=== PATIENT | male | born 1950 | race African-American/Black ===

== ENCOUNTER 2018-06-28 07:24 | Inpatient (IN) | payer BC, MEDICARE ==
[2018-06-28] VITALS (48 sets, daily range): BP systolic 117–150; BP diastolic 57–93
[~2018-06-28] VITALS: Ht 185.4 cm; Wt 97.5 kg
[2018-06-28 07:42] LABS: Basophils # (auto) 0 uL; Basophils % (auto) 0.4 % (0.0-2.0); Eosinophils # (auto) 0.3 uL; Monocytes % (auto) 12.2 % (0.0-12.0); Neutrophils # (auto) 3.7 uL; Nucleated Red Blood Cells % 0.3 %
[2018-06-28 07:44] LABS: Hematocrit 37.4 % (41.0-53.0); Hemoglobin 11.5 g/dL (13.5-17.5); Lymphocytes % (auto) 29.5 % (10.0-50.0); Mean Corpuscular Hemoglobin 29.4 pg (28.0-32.0); Mean Corpuscular Hgb Conc. 30.8 g/dL (32.0-36.0); Mean Corpuscular Volume 95.4 fL (80.0-100.0); Monocytes # (auto) 0.8 uL; Neutrophils % (auto) 53.9 % (37.0-80.0); Platelet Count (auto) 130 10^3/uL (140-450); Red Blood Cells 3.92 10^6/uL (4.5-5.90); Red Cell Distribution Width 12.8 % (11.8-14.3); White Blood Cell 6.9 10^3/uL (4.4-10.8)
[2018-06-28] MEDS ORDERED: NOREPINEPHRINE 8 MG/250ML KIT 250 ML IV ONE (07:46)
[2018-06-28 07:59] LABS: Albumin 3.1 g/dL (3.4-5.0); Anion Gap 14 (5-15); Calcium 8.4 mg/dL (8.5-10.1); Carbon Dioxide 20 mmol/L (21-32); Chloride 105 mmol/L (98-107); Glucose 304 mg/dL (74-106); Magnesium 2.5 mg/dL (1.6-2.6); Potassium 4.4 mmol/L (3.5-5.1); Sodium 139 mmol/L (136-145)
[2018-06-28 08:02] LABS: Alanine Aminotransferase 71 U/L (16-61); Alkaline Phosphatase 184 U/L (45-117); Aspartate Aminotransferase 80 U/L (15-37); BUN/Creatinine Ratio 20.2; Bilirubin, Total 0.3 mg/dL (0.2-1.0); Blood Urea Nitrogen 53 mg/dL (7-18); GFR African American 32 mL/min; GFR Non-African American 26 mL/min; Total Protein 6.8 g/dL (6.4-8.2)
[2018-06-28 08:11] LABS: Urine Bacteria NONE SEEN /hpf (None Seen); Urine Blood 1+ /uL (Negative); Urine Mucus FEW (None Seen); Urine Specific Gravity 1.014 (1.001-1.035); Urine Sperm PRESENT /hpf (None Seen); Urine WBC 37 /hpf (0 - 3)
[2018-06-28 08:13] LABS: Alcohol, Urine < 3.0 mg/dL (0-5); Amphetamine Screen, Urine NEGATIVE (NEGATIVE); Barbiturate Scree,Urine NEGATIVE (NEGATIVE); Benzodiazephine Screen, Urine NEGATIVE (NEGATIVE); Cannabinoid Screen, Urine NEGATIVE (NEGATIVE); Cocaine Screen, Urine NEGATIVE (NEGATIVE); Opiate Scree,Urine NEGATIVE (NEGATIVE); Phencyclidine Screen, Urine NEGATIVE (NEGATIVE)
[2018-06-28] MEDS ORDERED: SODIUM CHLORIDE 0.9% 1,000 ML IV ONE (08:15)
[2018-06-28] MEDS: NOREPINEPHRINE 8 MG/250ML KIT 250 ML IV SCH (08:24)
[2018-06-28 08:43] LABS: INR 0.93 (0.9-1.15)
[2018-06-28] MEDS ORDERED: LORazepam 2MG/ML-1ML VIAL IV ONE (09:45)
[2018-06-28] MEDS ORDERED: ENOXAPARIN SOD 60 MG/0.6 ML SYRINGE SC ONE (10:15)
[2018-06-28 10:29] LABS: Lactic Acid w/Reflex 5.2 mmol/L (0.4-2.0)
[2018-06-28] MEDS ORDERED: METOPROLOL TARTRATE 1MG/1ML-5ML VIAL IV ONE (10:45)
[2018-06-28] MEDS ORDERED: cefTRIAXone 1GM/50ML D5W 50 ML IV ONE (10:45)
[2018-06-28] MEDS ORDERED: FUROSEMIDE 20 MG/2 ML VIAL ONE (11:02)
[2018-06-28] MEDS: SODIUM CHLORIDE 0.9% 1,000 ML IV SCH (11:13)
[2018-06-28] MEDS ORDERED: NITROGLYCERIN 50MG/250ML 250 ML IV SCH (11:13)
[2018-06-28] MEDS ORDERED: PROMETHAZINE HCL 25 MG/ML 1ML IV PRN (11:15)
[2018-06-28] MEDS ORDERED: NITROGLYCERIN 0.4 MG SL TAB SL PRN (11:15)
[2018-06-28] MEDS ORDERED: MORPHINE SULFATE 10 MG/ML INJ 1ML SDV IV PRN ×2 (11:15)
[2018-06-28] MEDS ORDERED: ALBUTEROL SULF 2.5 MG/0.5ML(0.5%) NEB SOLN NEB PRN (11:15)
[2018-06-28] MEDS ORDERED: LORazepam 2MG/ML-1ML VIAL IV PRN (11:15)
[2018-06-28] MEDS ORDERED: OSELTAMIVIR 75 MG CAP PO ONE (11:15)
[2018-06-28] MEDS ORDERED: PANTOPRAZOLE 40 MG/10 ML VIAL IV ONE (11:15)
[2018-06-28] MEDS ORDERED: hydrALAZINE HCL 20 MG/ML VL IV ONE (11:15)
[2018-06-28] MEDS ORDERED: DEXTROSE (50%) 50ML SYRG IV PRN (11:15)
[2018-06-28] MEDS ORDERED: LACTULOSE 20Gm/30ML SOLN PO PRN (11:15)
[2018-06-28] MEDS ORDERED: FUROSEMIDE 20 MG/2 ML VIAL IV ONE (11:15)
[2018-06-28] MEDS ORDERED: NITROGLYCERIN 50MG/250ML 250 ML IV ONE (11:30)
[2018-06-28] MEDS: InsuLIN REG 1unit/0.01ml Soln (100units/ml) SC SCH ×3 (12:00→20:15)
[2018-06-28] MEDS: ACCU-CHEK COMFORT CURVE STRIP VI SCH ×3 (12:00→20:15)
[2018-06-28] MEDS ORDERED: SODIUM CHLORIDE 0.9% 3,250 ML IV ONE (12:15)
[2018-06-28] MEDS: ALBUTEROL SULF 2.5 MG/0.5ML(0.5%) NEB SOLN NEB SCH ×2 (12:20→18:16)
[2018-06-28] MEDS: NICARDIPINE 25MG/250ML BAG KIT 250 ML IV SCH ×3 (12:22→22:00)
[2018-06-28] MEDS ORDERED: LIDOCAINE 2% (LOCAL ANESTH.) PF 5ml SDV ONE (13:32)
--- NOTE | 2018-06-28 13:32 | NUR ---
Admit to ICU from ER on vent JONAH RAMÍREZadmitted to ICU via gurdewey on lunchroom monitor, intubated and being bagged by Respiratory Therapist. Patient transfered to bed, connected to mechanical ventilator by therapist, FILEMON at bedside. Patient connected to ICU monitoring, weighed by helena, oriented to Dean dill RN, unit, ventilator. NOTE: PATIENT ON VENTILATOR ON COOLING BLANKET. THERAPEUTIC HYPOTHERMIA INITIATED BY ER STAFF BY EXTERNAL COOLING AT 1200 NOON. PATIENT PENDING SPECIALTY COOLING CENTRAL LINE CATHETER PLACEMENT FOR INTERNAL COOLING. PATIENT ET TUBE IS SIZE 8 AND 22 AT THE LIP , VENT SETTINGS AC MODE RATE 18, TV-550, PEEP-5, 60% FIO2. VS HR-93, SPO2-92% ,BP-140/43, RR-20, TEMP 34 DEGREES CELSIUS. CLAYTON CATH FROM ER REMOVED.Clayton catheter [16] guage Maltese inserted with clean sterile technique. Patient tolerated well. CURRENT CLAYTON PLACED HAS INTERNAL TEMPERATURE PROBE DUE TO SHORTAGE OF RECTAL PROBES. PHYSICAL ASSESSMENT PERFORMED DOCUMENTED IN SMB Suite WITH IV SPREADSHEET. SCDS PLACED ON BOTH LEGS. ORAL CARE PERFORMED. WILL CONTINUE TO FOLLOW THROUGH WITH PLAN OF CARE.
--- NOTE | 2018-06-28 14:00 | NUR ---
RIGHT FEMORAL LINE CATHETER PLACED BY AT BEDSIDE. CVP SET UP CONNECTED CVP IS 8. LINES ZEROED TO PHLEBOSTATIC AXIS. CATHETER CONNECTED TO INTERNAL COOLING SYSTEM. CONSENT FOR CENTRAL LINE RECEIVED VIA TELEPHONE BY VERIFIED BY SECOND RN.
[2018-06-28] MEDS: PROPOFOL 100 ML IV SCH ×2 (14:23→23:41)
[2018-06-28] MEDS ORDERED: PROPOFOL 100 ML IV ONE (14:23)
[2018-06-28] MEDS ORDERED: OSELTAMIVIR 75MG/5ML ORAL SUSP GT ONE (14:45)
[2018-06-28] MEDS ORDERED: methylPREDNISolone SOD SUCC 40 MG/ML VL IV ONE (14:45)
[2018-06-28 14:58] LABS: CRP High Sensitivity 1.28 mg/dL (< 0.3)
[2018-06-28] MEDS: METOPROLOL TARTRATE 25 MG TAB NG SCH ×2 (15:31→22:00)
[2018-06-28] MEDS: ATORVASTATIN 20 MG TAB NG SCH ×2 (15:31→22:13)
[2018-06-28] MEDS: CLINDAMYCIN 600MG IV 50 ML IV SCH ×2 (15:32→22:12)
[2018-06-28] MEDS ORDERED: NEBI10TA2 PO (16:28)
[2018-06-28] MEDS ORDERED: HYDR50TA15 PO (16:28)
[2018-06-28] MEDS ORDERED: LEVO175T31 PO (16:28)
[2018-06-28] MEDS ORDERED: ALBU1AER4 IN (16:28)
[2018-06-28] MEDS ORDERED: BETH10TA2 PO (16:28)
[2018-06-28] MEDS ORDERED: FURO40TA PO (16:28)
[2018-06-28] MEDS ORDERED: ASPI-231 PO (16:28)
[2018-06-28] MEDS ORDERED: METO5TAB56 PO (16:28)
[2018-06-28] MEDS ORDERED: ATOR10TA52 PO (16:28)
[2018-06-28 16:44] LABS: Protein, Urine 65.4 mg/dL (0.0-11.9)
[2018-06-28 16:44] LABS: Lactic Acid w/Reflex 2.1 mmol/L (0.4-2.0)
[2018-06-28 16:48] LABS: Urine Bacteria NONE SEEN /hpf (None Seen); Urine Blood 2+ /uL (Negative); Urine Specific Gravity 1.007 (1.001-1.035); Urine WBC 3 /hpf (0 - 3)
--- NOTE | 2018-06-28 17:30 | NUR ---
ET TUBE ADVANCED BY RT FROM 20 TO 22CM, AUDIBLE LEAK GONE AFTER ADVANCEMENT.
--- NOTE | 2018-06-28 18:11 | NUR ---
NOTIFIED [facility] OF PATIENT LAST TWO TROPONIN LEVELS, ORDERS RECEIVED FOR LEFT/ RIGHT HEART CATH ANGIOGRAM FOR EARLY 729. NOTIFIED AT BEDSIDE OF PLAN , WILL SIGN CONSENT ONCE MD EXPLAINS PROCEDURE.
[2018-06-28 18:34] LABS: BUN/Creatinine Ratio 19.6; Calcium 7.6 mg/dL (8.5-10.1); Potassium 3.5 mmol/L (3.5-5.1)
--- NOTE | 2018-06-28 20:00 | NUR ---
ASSESSMENT PATIENT IS UNRESPONSIVE.NO GAG NO COUGH. DIPRIVAN AT 20 MCG/KG/MIN DUE TO THERAPEUTIC HYPOTHERMIA TREATMENT. PATIENT IS ON COOLING STAGE PATIENT'S TEMPERATURE IS 91.4 DEGREE FAHRENHEIT. EKG SHOWS SINUS ARRHYTHMIA.
[2018-06-28] MEDS: FLUCONAZOLE 200MG/100ML 100 ML IV SCH ×2 (21:04→22:12)
[2018-06-28] MEDS ORDERED: OSELTAMIVIR 75 MG CAP PO SCH (22:00)
[2018-06-28] MEDS ORDERED: OSELTAMIVIR 75MG/5ML ORAL SUSP GT SCH (22:00)
[2018-06-28] MEDS: ENOXAPARIN SOD 100 MG/1 ML SYRINGE SC SCH (22:11)
[2018-06-28] MEDS: methylPREDNISolone SOD SUCC 40 MG/ML VL IV SCH (22:11)
[2018-06-29] VITALS (73 sets, daily range): BP systolic 97–150; BP diastolic 54–91
[2018-06-29] MEDS: ACCU-CHEK COMFORT CURVE STRIP VI SCH ×6 (00:15→20:00)
[2018-06-29] MEDS: InsuLIN REG 1unit/0.01ml Soln (100units/ml) SC SCH ×6 (00:16→20:00)
[2018-06-29] MEDS: ALBUTEROL SULF 2.5 MG/0.5ML(0.5%) NEB SOLN NEB SCH ×4 (00:18→18:12)
[2018-06-29 00:54] LABS: BUN/Creatinine Ratio 19.8; Calcium 7.8 mg/dL (8.5-10.1); Magnesium 1.9 mg/dL (1.6-2.6); Potassium 3.4 mmol/L (3.5-5.1)
[2018-06-29 01:03] LABS: Lactic Acid w/Reflex 3.2 mmol/L (0.4-2.0)
[2018-06-29] MEDS: NICARDIPINE 25MG/250ML BAG KIT 250 ML IV SCH ×5 (03:00→23:00)
--- NOTE | 2018-06-29 04:30 | NUR ---
SKIN PREPARATION/CHLORHEXIDINE BATH HAIR REMOVAL IS DONE ON GROIN AREA. CHLORHEXIDINE BATH GIVEN. SKIN IS INTACT.
[2018-06-29] MEDS: CLINDAMYCIN 600MG IV 50 ML IV SCH ×3 (05:36→21:33)
[2018-06-29] MEDS: PROPOFOL 100 ML IV SCH ×2 (05:36→20:30)
[2018-06-29] MEDS: SODIUM CHLORIDE 0.9% 1,000 ML IV SCH (05:37)
[2018-06-29 05:46] LABS: Basophils # (auto) 0 uL; Basophils % (auto) 0.4 % (0.0-2.0); Eosinophils # (auto) 0 uL; Eosinophils % (auto) 0.1 % (0.0-7.0); Hematocrit 35.3 % (41.0-53.0); Hemoglobin 11.3 g/dL (13.5-17.5); Lymphocytes # (auto) 0.1 uL; Lymphocytes % (auto) 5.6 % (10.0-50.0); Mean Corpuscular Hemoglobin 28.8 pg (28.0-32.0); Monocytes # (auto) 0.1 uL; Monocytes % (auto) 5.3 % (0.0-12.0); Neutrophils # (auto) 2.1 uL; Neutrophils % (auto) 88.6 % (37.0-80.0); Nucleated Red Blood Cells % 0.1 %; Platelet Count (auto) 120 10^3/uL (140-450); Red Blood Cells 3.93 10^6/uL (4.5-5.90); Red Cell Distribution Width 12.3 % (11.8-14.3); White Blood Cell 2.4 10^3/uL (4.4-10.8)
[2018-06-29 06:04] LABS: Albumin 2.3 g/dL (3.4-5.0); BUN/Creatinine Ratio 19.4; Calcium 7.8 mg/dL (8.5-10.1); Magnesium 1.8 mg/dL (1.6-2.6); Potassium 3.5 mmol/L (3.5-5.1)
[2018-06-29 06:05] LABS: Lactic Acid w/Reflex 2.4 mmol/L (0.4-2.0)
[2018-06-29 06:08] LABS: Bilirubin, Direct 0.2 mg/dL (0-0.2); Bilirubin, Total 0.3 mg/dL (0.2-1.0); Phosphorus 3.5 mg/dL (2.5-4.90); Total Protein 5.6 g/dL (6.4-8.2)
--- NOTE | 2018-06-29 06:15 | NUR ---
FAMILY AT BEDSIDE PATIENT'S AND SON ARE AT BEDSIDE. UPDATED WITH PT'S CONDITION. THEY VERBALIZED UNDERSTANDING.
[2018-06-29 06:27] LABS: INR 1.1 (0.9-1.15); Partial Thromboplastin Time 35.7 sec (23.78-33.04); Prothrombin Time 11.7 sec (9.27-12.13)
--- NOTE | 2018-06-29 07:00 | NUR ---
REPORT REPORT IS GIVEN TO BECKA GLEZ. ENDORSED CARE. COOLING MEASURES CONTINUING.
--- NOTE | 2018-06-29 07:50 | NUR ---
ETT. ADVANCED 6CM , PER RADIOLOGIST. ETT. IS NOW AT 26CM AT THE LIP. Addendum: 06/29/18 at 0902 by Lilian Decker RT Amended: Links added.
--- NOTE | 2018-06-29 07:50 | NUR ---
NEUROLOGY AT BEDSIDE/CALL FROM RADIOLOGIST/ETT ADVANCED PHONE CALL RECEIVED FROM RADIOLOGIST - RECOMMENDING ETT BE ADVANCED 6 CM PER MESSAGE TAKEN FROM ATHLETIC EQUIPMENT CUSTODIAN. Anastasia NEWSOME. AWARE. DR AQUINO AT BEDSIDE, UPDATED ON PATIENT'S STATUS AND ASSESSMENT FINDINGS. DR AQUINO PERFORMED ASSESSMENT WELL, DISCUSSED PROGNOSIS AND PLAN OF CARE WITH PATIENT SPOUSE AT BEDSIDE.
[2018-06-29] MEDS: NOREPINEPHRINE 8 MG/250ML KIT 250 ML IV SCH (08:15)
--- NOTE | 2018-06-29 08:15 | NUR ---
PAGED CARDIOLOGY PAGED DR JANSEN TO NOTIFY OF FAMILY REQUEST TO SPEAK WITH HIM PRIOR TO SIGNING CONSENT FOR THIS MORNING SCHEDULED HEART CATH.
--- NOTE | 2018-06-29 08:46 | NUR ---
CARDIOLOGY AT BEDSIDE DR JANSEN UPDATED ON PATIENT'S STATUS. DR JANSEN DISCUSSED PLAN OF CARE AND PROCEDURE WITH PATIENT'S SPOUSE AND SON AT BEDSIDE. ORDERS FOR LEFT RIGHT HEART CATH AND PERMANENT PACEMAKER INSERTION RECEIVED. ORDERS WILL BE PLACED BY DR JANSEN. CONSENT WILL BE SIGNED. FAMILY VERBALIZED UNDERSTANDING.
[2018-06-29] MEDS: ENOXAPARIN SOD 100 MG/1 ML SYRINGE SC SCH ×2 (10:00→22:15)
[2018-06-29] MEDS ORDERED: LEVOFLOXACIN 500MG 100 ML IV ONE (10:00)
[2018-06-29] MEDS: ASPirin 81 mg TAB NG SCH (10:00)
--- NOTE | 2018-06-29 10:04 | NUR ---
NEPHROLOGY AT BEDSIDE DR SCANLON UPDATED ON PATIENT'S STATUS, URINE OUTPUT AND DRIPS. ORDERS TO DISCONTINUE TRIDIL AND RESTART NICARDIPINE IF NEEDED RECEIVED. DR SCANLON DISCUSSED PLAN OF CARE WITH PATIENT SPOUSE AND SON AT BEDSIDE, FAMILY VERBALIZED UNDERSTANDING.
[2018-06-29] MEDS: METOPROLOL TARTRATE 25 MG TAB NG SCH ×2 (11:02→21:34)
[2018-06-29] MEDS: methylPREDNISolone SOD SUCC 40 MG/ML VL IV SCH (11:02)
[2018-06-29] MEDS: PANTOPRAZOLE 40 MG/10 ML VIAL IV SCH (11:02)
--- NOTE | 2018-06-29 11:15 | NUR ---
WOUND CARE NOTE: IN TO SEE PATIENT FOR SKIN INTEGRITY MONITORING AT THIS TIME. PATIENT RECENTLY ADMITTED TO [facility] WITH DIAGNOSIS OFCARDIAC ARREST, NON STEMI. CURRENT WENCESLAO SCORE IS 12. HE IS ON MULTIPLE DRIPS. PATIENT IS INTUBATED, SEDATED. FAMILY AT BEDSIDE. PATIENT IS WOUND FREE AT THIS TIME. IMPLEMENTED SKIN/WOUND CARE PLAN FOR LOW WENCESLAO SCORES UNDER 19. RECOMMEND: FREQUENT TURN SCHEDULE Q 2 HOURS, PRN CONDITION PERMITS, WITH PRESSURE REDISTRIBUTION USING PILLOWS/WEDGES, BID/PRN APPLICATION WITH MOISTURE BARRIER CREAM AND OPTIFOAM GENTLE SACRAL DRESSING PREVENTATIVE, DIETARY CONSULT FOR LOW WENCESLAO, CONTINUED MONITORING BY WOUND CARE TEAM.
--- NOTE | 2018-06-29 12:09 | NUR ---
REWARMING PHASE STARTED VS STABLE, FAMILY AT BEDSIDE. WILL MONITOR PATIENT PER PROTOCOL.
[2018-06-29 12:29] LABS: Potassium 3.8 mmol/L (3.5-5.1)
[2018-06-29 12:32] LABS: Lactic Acid w/Reflex 2.8 mmol/L (0.4-2.0)
[2018-06-29 12:34] LABS: BUN/Creatinine Ratio 19.8; Magnesium 1.9 mg/dL (1.6-2.6)
--- NOTE | 2018-06-29 13:08 | NUR ---
CONTACT ISOLATION PATIENT PLACED ON CONTACT ISOLATION PER MICROBIOLOGY RESULTS FOR POSITIVE MRSA NARES. SHEYLA, CHARGE NURSE AND FAMILY AWARE. WILL BE NOTIFIED.
[2018-06-29] MEDS ORDERED: SODIUM CHL 0.9% 0 ML ONE (13:22)
[2018-06-29] MEDS ORDERED: ANGIOMAX 250 MG VIAL IV ONE (13:22)
[2018-06-29] MEDS ORDERED: IODIXANOL 320MG/ML 100ML BTL IV ONE ×2 (13:25→14:17)
[2018-06-29] MEDS ORDERED: LIDOCAINE 2%HCL (LOCAL ANESTH.) INJ 20ML MDV ONE (13:26)
--- NOTE | 2018-06-29 13:50 | NUR ---
PATIENT OFF FLOOR/HOSPITALIST AT BEDSIDE TO [facility] FOR SCHEDULED PROCEDURE. DR CARLOS UPDATED ON PATIENT STATUS - DOCTOR DISCUSSED PLAN OF CARE WITH PATIENT'S FAMILY AT BEDSIDE.
[2018-06-29] MEDS ORDERED: Glucerna 1.2 Cal 1Liter BOTTLE GT SCH (14:00)
--- NOTE | 2018-06-29 15:30 | NUR ---
PATIENT RETURN TO FLOOR FROM AIRCRAFT INSTRUMENT REPAIRER - PATIENT CONNECTED TO BEDSIDE MONITOR - ZOLL MACHINE NOT FUNCTIONING ADEQUATELY DUE TO TRANSFER TO AIRCRAFT INSTRUMENT REPAIRER AND READJUSTED. CURRENT TEMPERATURE 33.6 CELCIUS. WILL CONTINUE REWARMING PROCESS PER PROTOCOL. COMFORT MEASURES PROVIDED, VSS AND DOCUMENTED.
--- NOTE | 2018-06-29 16:08 | NUR ---
FAMILY AT BEDSIDE Family at bedside and updated on pt status. All questions and concerns addressed. Family verbalized understanding.
--- NOTE | 2018-06-29 19:15 | NUR ---
END OF SHIFT REPORT NO NEURO CHANGES NOTED, THROUGHOUT SHIFT - ENDORSED PATIENT CARE TO KNITTER OPERATOR RN. VS NOT TRANSPOSING, SEE GRAPHICS FILED IN CHART.
--- NOTE | 2018-06-29 19:35 | NUR ---
ASSESSMENT: PT. INTUBATED AND OFF SEDATION AT THIS TIME. HR 80'S, SBP 140-150'S, RR LOW 30'S. CHEWING MOVEMENT NOTED TO MOUTH WITH NO RESPONSE TO SUCTIONING BOTH ORAL AND ENDOTRACHEAL. PUPILS UNEQUAL, AND NON REACTIVE, RIGHT 3, LEFT 2. FAMILY STATES PATIENT HAS HAD BILATERAL CATARACT SURGERY IN THE PAST. VENT ON 30% FIO2, +5 PEEP, SATS 90%. LUNGS CLEAR TO AUSCULTATION. ABDOMEN - LARGE, ROUND WITH (+) B.S., NO STOOL NOTED AT THIS TIME. OGT TO LIS, WITH LIGHT GREEN DRAINAGE. RICHARDSON WITH CLEAR, YELLOW URINE TO DD. ALSYUS COOLING MACHINE IN PLACE TO CENTRAL LINE TO RIGHT FEMORAL AREA. PT. IN REWARMING MODE AT THIS TIME. TEMP 35.5, GOAL 37.
--- NOTE | 2018-06-29 20:30 | NUR ---
PT. REPOSITIONED TO RIGHT SIDE WITH X2 ASSIST. SATURATIONS DOWN 86%, SUCTIONED BOTH ORAL AND ETT WITH MINIMAL CHANGE IN SATS PT'S CHILDREN AT BEDSIDE.
--- NOTE | 2018-06-29 20:30 | NUR ---
HR 80'S,, SATS 90%, SBP 150'S, BREATHING TACHYPNEIC, IRREGULAR, RR 32-36, BREATHING APPEARS HEAVIER. WILL RESTART PROPOFOL FAMILY ASKS ABOUT CARDENE FOR PRESSURE CONTROL, EXPLAINED THAT PROPOFOL WILL BE GIVEN A CHANGE TO WORK ON SEDATION AND DECIDE ON DRIP AFTER ITS SEEN WHAT CHANGES PROPOFOL DOES.
[2018-06-29] MEDS ORDERED: FLUCONAZOLE 200MG/100ML 100 ML IV SCH (21:00)
--- NOTE | 2018-06-29 21:09 | NUR ---
SPOKE TO BLAIR, PT'S DAUGHTER, QUESTIONS AND CONCERNS ADDRESSED IN REGARDS TO INCREASE IN FIO2 AND LASIX WHICH WAS DISCUSSED WITH DR. ALLEN EARLIER.
[2018-06-29] MEDS: ATORVASTATIN 20 MG TAB NG SCH (21:33)
--- NOTE | 2018-06-29 21:45 | NUR ---
PT'S AT BEDSIDE, QUESTIONS AND CONCERNS ADDRESSED.
--- NOTE | 2018-06-29 22:48 | NUR ---
TARGET REWARMING TEMP REACHED AT 37.0
[2018-06-30] VITALS (101 sets, daily range): BP systolic 90–124; BP diastolic 47–75
[2018-06-30] MEDS: ALBUTEROL SULF 2.5 MG/0.5ML(0.5%) NEB SOLN NEB SCH ×4 (00:01→19:08)
[2018-06-30] MEDS: InsuLIN REG 1unit/0.01ml Soln (100units/ml) SC SCH ×4 (00:20→20:00)
[2018-06-30] MEDS: ACCU-CHEK COMFORT CURVE STRIP VI SCH ×4 (00:21→20:00)
--- NOTE | 2018-06-30 01:30 | NUR ---
FIO2 50%, SATS 95%. LARGE AMT. OF THICK, CLEAR ORAL SECRETIONS.
[2018-06-30] MEDS: PROPOFOL 100 ML IV SCH (03:17)
[2018-06-30 03:43] LABS: Hematocrit 32.4 % (41.0-53.0); Hemoglobin 10.7 g/dL (13.5-17.5); Mean Corpuscular Hemoglobin 29.1 pg (28.0-32.0); Mean Corpuscular Hgb Conc. 32.9 g/dL (32.0-36.0); Mean Corpuscular Volume 88.6 fL (80.0-100.0); Platelet Count (auto) 123 10^3/uL (140-450); Red Blood Cells 3.66 10^6/uL (4.5-5.90); Red Cell Distribution Width 12.4 % (11.8-14.3)
[2018-06-30 03:55] LABS: Albumin 2.2 g/dL (3.4-5.0); Calcium 7.8 mg/dL (8.5-10.1); Potassium 4.4 mmol/L (3.5-5.1)
[2018-06-30 03:59] LABS: Bilirubin, Direct 0.2 mg/dL (0-0.2); Bilirubin, Total 0.4 mg/dL (0.2-1.0)
[2018-06-30] MEDS: NICARDIPINE 25MG/250ML BAG KIT 250 ML IV SCH ×2 (04:00→09:00)
[2018-06-30 04:42] LABS: Basophils % (manual) 0 (0.0-2.0); Blast Cells 0; Eosinophils % (manual) 0 (0-7); Metamyelocytes % 0; Myelocytes % 0; Promyelocytes % 0; Reactive Lymphocytes 0
--- NOTE | 2018-06-30 05:00 | NUR ---
LARGE AMOUNT OF ORAL SECRETIONS, FREQUENTLY BEING SUCTION DUE TO AMT. OF ORAL SECRETIONS.
--- NOTE | 2018-06-30 05:30 | NUR ---
CALL RECEIVED FROM PT'S , UPDATED ON STATUS.
[2018-06-30] MEDS: CLINDAMYCIN 600MG IV 50 ML IV SCH ×3 (06:00→21:36)
--- NOTE | 2018-06-30 06:00 | NUR ---
LOW URINE OUTPUT, LARGE AMT. OF SEDIMENT AND CLOUDY
[2018-06-30 06:44] LABS: Band Neutrophils % (manual) 31; Lymphocytes % (manual) 5 (10.0-50.0); Monocytes % (manual) 10 (0-12)
--- NOTE | 2018-06-30 07:33 | NUR ---
REPORT GIVEN TO MARIA EUGENIA GLEZ
--- NOTE | 2018-06-30 08:00 | NUR ---
OPEN: ASSESSMENT COMPLETE. SEE NURSING FLOW SHEET FOR UPDATED DETAILS. PT IS NON-VERBAL, INTUBATED, APHASIC, DOES NOT FOLLOW COMMANDS, NO COUGH OR GAG REFLEX, PUPILS UNEQUAL AND NON-REACTIVE, NO SPONTANEOUS EXTREMITY MOVEMENTS, DOES NOT RESPOND TO VERBAL OR PAINFUL STIMULI, MOVES JAW ON OCCASION BUT NOT OTHER MOVEMENTS NOTED. ON VENTILATOR WITH 8.0ETTUBE/26LIP LINE. AC18, TV550, 45% FI02, PEEP 5. MINIMAL TO NO SECRETIONS VIA ETTUBE. COPIOUS AMOUNT OF CLEAR SECRETIONS VIA ORAL CAVITY. OGT IN PLACE-CLAMPED AND IN PROPER PLACEMENT BY AUSCULTATION AND ASPIRATION. RICHARDSON CATHETER IN PLACE DRAINING URINE TO GRAVITY. SCD'S ON BILATERAL LOWER EXTREMITIES. CENTRAL LINE TO LEFT GROIN RUNNING .9NS AT TKO RATE OF 10ML/HR AND DIPRIVAN GTT AT 20MCG/KG/MIN. CENTRAL LINE PORT CAPABLE TO ZOLL MONITOR FOR TEMPERATURE MANAGEMENT, AT TIME CONNECTED FOR THE WARMING PHASE WITH THE GOAL OF 37 DEGREES CELCIUS OBTAINED. 20G IV TO LEFT HAND, SL. 20G IV TO RIGHT HAND, SL. 20G IV TO RIGHT AC, SL. ALL MONITORS CONNECTED TO PT FOR CONTINUOUS MONITORING. SHARED POC WITH PT BUT UNABLE TO VERBALIZE UNDERSTANDING AT TIME. CONTINUE CARE FOR SHIFT.
[2018-06-30] MEDS: NOREPINEPHRINE 8 MG/250ML KIT 250 ML IV SCH (08:15)
--- NOTE | 2018-06-30 08:45 | NUR ---
RT Transport Note: Patient transported to {CT} with RN {MAIA CHURCHILL}. Patient transported to and from procedure on ventilator with previous ordered settings. Patient on security monitor with alarms set and audible, ambu-bag/mask connected to 02 tank. Patient returned to room with no adverse reaction noted. Transport completed without incident.
--- NOTE | 2018-06-30 08:47 | NUR ---
HEAD CT: PT TAKEN TO HEAD CT. PT TRANSPORTED TO HEAD CT WITH ASSISTANCE FROM CHRISTOPHER GLEZ (DIGITAL SALES MANAGER), RT AND TECH. ALL VITAL SIGNS TAKEN PRIOR AND IN STABLE RANGE.
--- NOTE | 2018-06-30 09:00 | NUR ---
SEDATION: DECREASED DIPRIVAN TO 15MCG/KG/MIN. PT STILL NOT MOVING ANY EXTREMITIES, DOES NOT FOLLOW COMMANDS, NO COUGH OR GAG AND PUPILS REMAIN FIXED AND NON-REACTIVE. DOES BREATH OVER VENTILATOR WITH A RATE BETWEEN 19-20.
--- NOTE | 2018-06-30 09:12 | NUR ---
RETURN: PT RETURNED FROM HEAD CT IN STABLE CONDITION. PT CONNECTED TO BEDSIDE MONITOR, VITAL SIGNS TAKEN AND REPOSITIONED IN BED. PT OVERALL TOLERATED PROCEDURE WELL.
--- NOTE | 2018-06-30 09:30 | NUR ---
SEDATION: DECREASED DIPRIVAN TO 10MCG/KG/MIN. PT STILL NOT MOVING ANY EXTREMITIES, DOES NOT FOLLOW COMMANDS, NO COUGH OR GAG AND PUPILS REMAIN FIXED AND NON-REACTIVE. DOES BREATH OVER VENTILATOR WITH A RATE BETWEEN 19-21.
--- NOTE | 2018-06-30 09:30 | NUR ---
MD VISIT: DR. SCANLON IN AT BEDSIDE. UPDATED ON PT STATUS AND ALL QUESTIONS ADDRESSED. NO NEW ORDERS RECEIVED AT TIME.
[2018-06-30] MEDS: ENOXAPARIN SOD 100 MG/1 ML SYRINGE SC SCH (09:55)
[2018-06-30] MEDS: ASPirin 81 mg TAB NG SCH (09:55)
[2018-06-30] MEDS: PANTOPRAZOLE 40 MG/10 ML VIAL IV SCH (09:55)
[2018-06-30] MEDS ORDERED: LEVOFLOXACIN 250MG 50 ML IV SCH (10:00)
--- NOTE | 2018-06-30 10:00 | NUR ---
EEG: EEG IN AT BEDSIDE. ATTEMPTING TO PERFORM EEG PER MD ORDERS BUT ROOM AND PT ARE BRINGING TOO MUCH ARTIFACT. DR. AQUINO NOTIFIED AND AWARE.
--- NOTE | 2018-06-30 10:30 | NUR ---
FAMILY: FAMILY IN AT BEDSIDE, DAUGHTER AND . FULLY UPDATED ON PT STATUS AND ALL QUESTIONS AND CONCERNS ADDRESSED.
--- NOTE | 2018-06-30 10:30 | NUR ---
SEDATION: TURNED OFF SEDATION. PT STILL NOT MOVING ANY EXTREMITIES, DOES NOT FOLLOW COMMANDS, NO COUGH OR GAG AND PUPILS REMAIN FIXED AND NON-REACTIVE. DOES BREATH OVER VENTILATOR WITH A RATE BETWEEN 19-22.
--- NOTE | 2018-06-30 10:45 | NUR ---
REPORT: REPORT GIVEN TO DANIELLE RN TO RESUME CARE OF PT. FOR STAFFING REASONS, REPORT GIVEN DURING 12HR. SHIFT. ALL CARE HANDED OFF.
--- NOTE | 2018-06-30 10:50 | NUR ---
ASSUMED CARE OF PATIENT FROM ROYA GLEZ. NEURO: PATIENT WITHOUT COUGH/GAG, NO WITHDRAWAL OF EXTREMITIES TO DEEP PAIN STIMULI, NO TRACKING NOTED. PUPILS FIXED - LEFT 2MM AND RIGHT 4MM.
--- NOTE | 2018-06-30 11:33 | NUR ---
NUTRITION ASSESSMENT NOTES Please refer to link notes of nutrition screen form filed under the intervention section of the plan of care for further details. Est. Needs: 1950 kcal to 2400 kcal (20-25 kcal/kgBW), 77 gms to 96 gms pro (0.8-1.0 gms/kgBW). Will continue to monitor pertinent labs and reassess nutrient need prn Thank you. Addendum: 06/30/18 at [address] Amended: Links added.
--- NOTE | 2018-06-30 12:45 | NUR ---
Patient noted with irregular breathing on ventilator- sl. labored - Diprivan started - see IV flowsheet.
[2018-06-30] MEDS ORDERED: DEXTROSE (50%) 50ML SYRG IV PRN (13:00)
--- NOTE | 2018-06-30 14:30 | NUR ---
visits and examines patient - new orders received.
--- NOTE | 2018-06-30 15:00 | NUR ---
visits ans examines patient - orders received. Family meeting in conference room with - results of Head CT and treatment options given to patient's family. Patient's children tearful-support offered.
[2018-06-30] MEDS: METOPROLOL TARTRATE 25 MG TAB NG SCH ×2 (15:41→21:37)
[2018-06-30 16:13] LABS: Alcohol, Urine < 3.0 mg/dL (0-5); Amphetamine Screen, Urine NEGATIVE (NEGATIVE); Barbiturate Scree,Urine NEGATIVE (NEGATIVE); Benzodiazephine Screen, Urine NEGATIVE (NEGATIVE); Cannabinoid Screen, Urine NEGATIVE (NEGATIVE); Cocaine Screen, Urine NEGATIVE (NEGATIVE); Opiate Scree,Urine NEGATIVE (NEGATIVE); Phencyclidine Screen, Urine NEGATIVE (NEGATIVE)
--- NOTE | 2018-06-30 17:30 | NUR ---
PATIENT'S FAMILY REQUESTS DNR STATUS-FORM SIGNED PER PATIENT'S - GINA Conti NP NOTIFIED-ORDER RECEIVED.
--- NOTE | 2018-06-30 18:15 | NUR ---
NO CHANGE IN PATIENT'S RESPIRATIONS WITH INCREASED DIPRIVAN. PATIENT'S SBP 90'S - DIPRIVAN TURNED OFF.
--- NOTE | 2018-06-30 18:30 | NUR ---
PATIENT'S DAUGHTER SPOKE WITH SOCIAL SERVICE RE: MORTUARY SERVICES.
--- NOTE | 2018-06-30 19:08 | NUR ---
RT NOTE RECEIVED PT INTUBATED AND ON VENT #V9 ON STATED SETTINGS. VENT IS PLUGGED TO RED OUTLET. ALARMS ARE ON AND AUDIBLE AT NURSES STATION. AMBU BAG AT BEDSIDE AND CONNECTED TO O2 SOURCE. CONT BEDSIDE MONITORING NOTED. 8.0 ETT IS SECURED WITH ANCHORFAST AT 26 CM TO THE ORAL RIGHT. BILATERAL BS ARE CLEAR. PT WAS SUCTIONED FOR SMALL RETURN FROM ETT AND ORALLY. HHN GIVEN INLINE WITH 2.5 MG ALBUTEROL WITHOUT ADVERSE REACTION NOTED. CONT ORDERED. POX 94% Addendum: 06/30/18 at 2044 by Marilee Singletary RT Amended: Links added.
--- NOTE | 2018-06-30 19:30 | NUR ---
CARE ASSUMED. ASSESSMENT:PT. DNR AT THIS TIME. CONTINUES VENTILATED, FIO2 40%, SATS 96%, LUNGS COARSE THROUGHOUT. HR 80'S, NO ECTOPY SINUS. SBP 110'S, NO PRESSORS, NO SEDATIVES. BREATHING SHALLOW AND ASYMMETRICAL, GUPPY BREATHS AT TIMES. ALL FAMILY MEMBERS HOME FOR THE NIGHT, REASSURED. ZOLL COOLING MACHINE STILL IN PLACE, TEMP 37.0 SKIN WARM AND DRY WITH STRONG RADIAL AND PEDAL PULSES. CENTRAL LINE TO RIGHT FEMORAL INTACT. X 3 IV SITE TO LFA AND RFA INTACT. WILL DISCONTINUE THERE IS NO NEED FOR EXTRA IV SITES AT THIS TIME. WILL CONTINUE WITH PRESENT CARE. REPOSITION AND ORAL CARE DONE
[2018-06-30] MEDS: ATORVASTATIN 20 MG TAB NG SCH (21:37)
[2018-07-01] VITALS (76 sets, daily range): BP systolic 109–149; BP diastolic 58–87
[2018-07-01] MEDS: ALBUTEROL SULF 2.5 MG/0.5ML(0.5%) NEB SOLN NEB SCH ×3 (00:41→11:34)
[2018-07-01] MEDS: InsuLIN REG 1unit/0.01ml Soln (100units/ml) SC SCH ×5 (04:00→16:45)
[2018-07-01 04:04] LABS: Basophils # (auto) 0 uL; Eosinophils # (auto) 0 uL; Hematocrit 28.5 % (41.0-53.0); Hemoglobin 9.4 g/dL (13.5-17.5); Lymphocytes # (auto) 0.2 uL; Lymphocytes % (auto) 1.9 % (10.0-50.0); Mean Corpuscular Hgb Conc. 33.2 g/dL (32.0-36.0); Mean Corpuscular Volume 87.5 fL (80.0-100.0); Monocytes # (auto) 0.6 uL; Monocytes % (auto) 5.5 % (0.0-12.0); Neutrophils # (auto) 10.7 uL; Neutrophils % (auto) 92.6 % (37.0-80.0); Nucleated Red Blood Cells % 0.1 %; Platelet Count (auto) 117 10^3/uL (140-450); Red Blood Cells 3.25 10^6/uL (4.5-5.90); Red Cell Distribution Width 12.5 % (11.8-14.3); White Blood Cell 11.5 10^3/uL (4.4-10.8)
[2018-07-01] MEDS: ACCU-CHEK COMFORT CURVE STRIP VI SCH ×5 (04:05→16:30)
[2018-07-01 04:10] LABS: Calcium 7.6 mg/dL (8.5-10.1); Potassium 4.1 mmol/L (3.5-5.1)
--- NOTE | 2018-07-01 04:30 | NUR ---
BED BATH, LINEN CHANGED.
--- NOTE | 2018-07-01 05:00 | NUR ---
2 MG IV MORPHINE FOR LABORED BREATHING, RATE 25. ORAL SECRETIONS DECREASED.
[2018-07-01] MEDS: MORPHINE SULFATE 10 MG/ML INJ 1ML SDV IV PRN ×3 (05:17→18:00)
[2018-07-01] MEDS: CLINDAMYCIN 600MG IV 50 ML IV SCH ×2 (05:43→14:31)
--- NOTE | 2018-07-01 06:13 | NUR ---
SLIGHT IMPROVEMENT OF QUALITY OF BREATHING AT THIS TIME. RR 18. SATS 98%
--- NOTE | 2018-07-01 07:30 | NUR ---
Assumed care from Perri GLEZ. Neuro status unchanged with pupils unequal - right 4mm and left 2mm - fixed. no cough/gag noted with suctioning per ETT. No withdrawal of extremities with deep painful stimuli exerted.
[2018-07-01] MEDS: NOREPINEPHRINE 8 MG/250ML KIT 250 ML IV SCH (08:15)
[2018-07-01] MEDS ORDERED: LEVOFLOXACIN 500MG 100 ML IV ONE (09:45)
[2018-07-01] MEDS: PANTOPRAZOLE 40 MG/10 ML VIAL IV SCH (10:57)
[2018-07-01] MEDS: METOPROLOL TARTRATE 25 MG TAB NG SCH (10:58)
[2018-07-01] MEDS: ASPirin 81 mg TAB NG SCH (10:58)
[2018-07-01] MEDS: ENOXAPARIN SOD 100 MG/1 ML SYRINGE SC SCH (10:58)
[2018-07-01] MEDS ORDERED: FUROSEMIDE 100 MG/10ML VIAL IV SCH (11:00)
[2018-07-01] MEDS: PROPOFOL 100 ML IV SCH (14:23)
--- NOTE | 2018-07-01 17:00 | NUR ---
Family requests apnea/spontaneous breathing trial - Dr. Gallego contacted - orders received - RT notified.
--- NOTE | 2018-07-01 17:05 | NUR ---
Respiratory note: PLACED PT ON CPAP PER DR ORDERS. RN AND FAMILY AT BEDSIDE. PT SPO2 DROPPED TO 81%, RR INCREASED TO 35, AND VT FELL TO 150- LOW 200'S. TERMINATED CPAP TRAIL WITH 5 MINS.
--- NOTE | 2018-07-01 17:10 | NUR ---
Family requests terminal wean from ventilator - call placed to and [employer] [facility]WK[employer].
--- NOTE | 2018-07-01 17:38 | NUR ---
Calls again placed to and [employer]- call returned per [employer] [employer] - states will come and speak with patient's family.
[2018-07-01] MEDS ORDERED: MORPHINE SULFATE 4 MG/ML SYR/VIAL IV PRN (18:00)
--- NOTE | 2018-07-01 18:05 | NUR ---
Respiratory note: AFTER RECEIVING ORDERS, PT WAS TERMINALLY WEANED OFF OF THE VENTILATOR AT THIS TIME. FAMILY IS AT BEDSIDE. AMARIS BOSTON AT BEDSIDE WELL.
--- NOTE | 2018-07-01 18:20 | NUR ---
Patient pronounced per Shonna Vinson NP.
--- NOTE | 2018-07-01 18:49 | NUR ---
Field Captain called per advertising writer - to return call.
--- NOTE | 2018-07-01 19:30 | NUR ---
FAMILY REQUESTED THE PATIENT BE MOVED TO [facility]. PAPERS SIGNED. FAMILY LEFT. NO BELONGINGS. RIGHT GROIN LINE REMOVED. RICHARDSON REMOVED. PATIENT PLACED IN [place] BAG.
--- NOTE | 2018-07-01 19:30 | NUR ---
Call placed to [facility]. Addendum: 07/01/18 at 2005 by Zeenat Moreno RN Reference Number recorded on chart.
--- NOTE | 2018-07-01 19:44 | NUR ---
Death Clearance Coordinator returns call - no autopsy indicated - Case No. [id number].
--- NOTE | 2018-07-01 20:55 | NUR ---
PATIENT MOVED TO [facility]
--- NOTE | 2018-07-02 06:39 | NUR ---
[facility] CALLED TO STATE THEY WON'T BE PROCEEDING WITH DONATION AND BODY CAN BE RELEASED TO MORTUARY OF FAMILY CHOICE
[2018-07-02] MEDS ORDERED: LEVOFLOXACIN 250MG 50 ML IV SCH (10:00)
--- NOTE | 2018-07-03 09:48 | NUR ---
Re: Mortuary Received call from daughter Maria G with mortuary information. [facility] .
== END 2018-07-01 18:20 | disposition expired ==
LOC: EDBD 07:24 → ER 07:24 → OVERFLOW 11:22 → ICU WEST 11:52
PROVIDERS: ADMIT Internal Medicine; ATTEND Internal Medicine
PROC: 5A12012 Performance of Cardiac Output, Single, Manual (ICD-10-PCS; principal; 2018-06-28)
PROC: 5A1945Z Respiratory Ventilation, 24-96 Consecutive Hours (ICD-10-PCS; 2018-06-28)
PROC: 0BH17EZ Insertion of Endotracheal Airway into Trachea, Via Natural or Artificial Opening (ICD-10-PCS; 2018-06-28)
PROC: 4A023N8 Measurement of Cardiac Sampling and Pressure, Bilateral, Percutaneous Approach (ICD-10-PCS; 2018-06-29)
PROC: B2111ZZ Fluoroscopy of Multiple Coronary Arteries using Low Osmolar Contrast (ICD-10-PCS; 2018-06-29)
PROC: B2151ZZ Fluoroscopy of Left Heart using Low Osmolar Contrast (ICD-10-PCS; 2018-06-29)
PROC: B41C1ZZ Fluoroscopy of Pelvic Arteries using Low Osmolar Contrast (ICD-10-PCS; 2018-06-29)
DX: I21.4 Non-ST elevation (NSTEMI) myocardial infarction (principal); G93.6 Cerebral edema; J96.01 Acute respiratory failure with hypoxia; N17.0 Acute kidney failure with tubular necrosis; K72.01 Acute and subacute hepatic failure with coma; E44.1 Mild protein-calorie malnutrition; E87.2 Acidosis; G93.1 Anoxic brain damage, not elsewhere classified; N18.4 Chronic kidney disease, stage 4 (severe); N39.0 Urinary tract infection, site not specified; D63.8 Anemia in other chronic diseases classified elsewhere; D69.6 Thrombocytopenia, unspecified; E11.21 Type 2 diabetes mellitus with diabetic nephropathy; E11.22 Type 2 diabetes mellitus with diabetic chronic kidney disease; E89.0 Postprocedural hypothyroidism; G25.3 Myoclonus; E04.9 Nontoxic goiter, unspecified; I12.9 Hypertensive chronic kidney disease with stage 1 through stage 4 chronic kidney disease, or unspecified chronic kidney disease; I27.20 Pulmonary hypertension, unspecified; I46.9 Cardiac arrest, cause unspecified; I67.2 Cerebral atherosclerosis; J45.909 Unspecified asthma, uncomplicated; N40.0 Benign prostatic hyperplasia without lower urinary tract symptoms; Z66 Do not resuscitate; Z82.49 Family history of ischemic heart disease and other diseases of the circulatory system; Z80.49 Family history of malignant neoplasm of other genital organs; Z68.28 Body mass index [BMI] 28.0-28.9, adult
CPT/HCPCS: 31500; 36415; 36600; 51702; 70450; 71045; 76775; 80048; 80053; 80061; 80076; 80307; 81001; 82248; 82550; 82553; 82570; 82805; 82962; 83036; 83605; 83735; 83880; 84100; 84132; 84156; 84300; 84443; 84484; 84550; 85007; 85025; 85027; 85379; 85610; 85652; 85730; 86141; 87040; 87070; 87081; 87086; 87205; 87804; 93306; 93970; 94002; 94003; 94640; 96361; 96365; 96375; 99291; A4618; A6257; C9113; G0378; J0696; J1450; J1815; J1956; J2001; J2704; J3490; Q9967